=== PATIENT | female | born 1955 | race Caucasian/White ===

== ENCOUNTER → 2017-09-13 13:11 | Outpatient (CLI) | payer BC ==
[2015-02-11 08:56] VITALS: BMI 32.7
[~2017-09-13 13:11] MED LIST: AMBIEN10 MG PO; LISINOPRIL10 MG PO; PLAVIX75 MG PO; XANAX1 MG PO
== END | disposition home or self-care (01) ==
LOC: D.MAMMO 13:11
DX: Z12.31 Encounter for screening mammogram for malignant neoplasm of breast (principal)

== ENCOUNTER → 2018-09-27 18:32 | Outpatient (CLI) | payer BC ==
[2015-02-11 08:56] VITALS: BMI 32.7
== END | disposition home or self-care (01) ==
LOC: D.MAMMO 11:30
PROVIDERS: ATTEND Emergency Medicine
DX: Z12.31 Encounter for screening mammogram for malignant neoplasm of breast (principal)